=== PATIENT | male | born 1960 | race Caucasian/White ===

== ENCOUNTER → 2017-03-08 | Day surgery (SDC) | payer OTHER ==
[~2017-03-08] VITALS: Ht 175.3 cm; Wt 93.0 kg
[~2017-03-08] MED LIST: ASPIRIN EC81 M1 PO; CARVEDILOL6.25 M1 PO; HUMALOG100 UNIT/2 SC; JANUVIA100 M1 PO; LEVEMIR100 UNIT/1 SC; LIPITOR80 M1 PO; LISINOPRIL10 M1 PO; NEURONTIN300 M1 PO
--- NOTE | 2017-03-13 09:37 | Operative Report ---
Operative/Inv Procedure Report Surgery Date: 03/08/17 Name of Procedure: Bilateral laparoscopic inguinal with mesh TEPP Pre-Operative Diagnosis: Bilateral inguinal hernias Post-Operative Diagnosis: Same, direct Estimated Blood Loss: scant Surgeon/Speech Correction Assistant: Kylie PARDO,Salvador NESS Anesthesia: general endotracheal tube Operative/Procedure Note Note: Note that this was a bilateral repair both sides done the same way we approached the less symptomatic side first the smaller one on the left, then the right they were both direct defects, I used an Endoloop twice to repair a small rent in the very thin hernia sac to protect the bowel from the mesh. Patient was positioned supine on the table. After successful induction of general anesthesia the inguinal and surrounding areas were clipped prepped and draped in the usual sterile fashion. After injection of local anesthetic at the bottom of the umbilicus off the midline to the left, a 1 1/2 cm curved incision was made with a 15 blade, then deepened through Kamryn's fascia, sweeping off the rectus sheath. A horizontal 1-1/2 cm incision was made between the fibers, elevating these edges with 0 Vicryl stay sutures. Then retracting the muscle laterally, clearing off the posterior rectus sheath, this space is developed down the midline to the pubis sequentially, with an S retractor, a peanut dissector, then the balloon-camera device, inflating it 30-40 pumps while watching how it opens up the space, keeping the epigastrics up. The balloon is then replaced with a 10 mm Sanchez trocar, inserted, shortened, and secured with the stay sutures, gas turned on to 12 not 15 mm. Then two 5 mm trochars are inserted in the midline just below the camera, spaced by approximately 3 cm. Using mostly blunt dissection with peanuts to define the anatomy, first Lalito's ligament is swept off medially, checking the medial spaces, direct and femoral. Both sides were direct defect. Then briefly skipping over the area of the iliac fat pad, we developed the iliopubic tract out laterally to the iliac crest. Then we returned to the area of the fat pad where the peritoneum and the cord structures are adherent, coursing up into an attenuated deep ring. The cord structures form a triangle with the vas approaching medially and the main vessels approaching laterally, with the apex at the deep ring. There was some preperitoneal fat up inside in front that was dragged down and out of the direct hernia. The cord is also from the underlying iliac fat. Once the hernia sac is pulled down and we isolated the cord structures down to the base of this "triangle," a Parietex sided mesh with the suture, is marked and stuffed down the camera trocar, then unfurled in a systematic fashion, first with the smaller leaflet passing behind the cord structures, until the flap covers the epigastrics, covering the deep ring, then the larger leaflet is released from the suture, double-covering the smaller one, but also extends laterally out to the iliac crest, medially over Lalito's ligament, and superiorly towards the camera. There is a third part of the mesh, that covers the iliac fat pad like a skirt. The mesh was adjusted back and forth so that the keyhole is centered around the cord, lays flat and the edges are not curling. Then as mentioned I switched sides and we repaired the right and similar fashion, used the Endoloop on this side. When we were done a trial run of letting the gas escape a little bit to see how the meshes would lay as the peritoneum comes back down is done, then when we're satisfied, we let rest of the gas escape, pulling out the instruments and trochars. The fascia is closed with a [id number] 0 Vicryl suture, tying the stay sutures on top. Then we closed the 3 skin incisions with interrupted 4-0 Monocryl, 3 for the umbilical, one each for the smaller ones, followed by Mastisol, Steri-Strips and Band-Aids. Overall estimated blood loss was minimal, lap and sponge counts were correct, wound expectancy was clean, IV fluids crystalloid, complications none, patient tolerated the procedure well, did not significantly vicente during extubation and was returned to the recovery room in satisfactory condition.
== END ==
LOC: STS 02:33
DX: K40.20 Bilateral inguinal hernia, without obstruction or gangrene, not specified as recurrent (principal); I10 Essential (primary) hypertension; E11.9 Type 2 diabetes mellitus without complications; Z79.4 Long term (current) use of insulin; I25.10 Atherosclerotic heart disease of native coronary artery without angina pectoris; Z95.5 Presence of coronary angioplasty implant and graft
CPT/HCPCS: C1781; C9399; J2250